=== PATIENT | female | born 1935 | race Caucasian/White ===

== ENCOUNTER 2018-01-03 17:48 | Emergency (ER) | payer MEDICARE ==
[~2018-01-03] VITALS: Ht 160 cm; Wt 72.7 kg
[~2018-01-03 17:48] MED LIST: ASPIRIN 81M81 MG/TA2 PO; BP MEDICATION; LEVOTHYROXINE; PERCOCET 325 MG1 TA2 PO; ULTRAM 50MG TAB50 MG PO
[2018-01-03] MEDS ORDERED: COZAAR 50MG50 MG/TAB PO (18:03)
[2018-01-03 18:31] LABS: BASO # 0.1 (0.0-0.2); EOS # 0.1 (0.0-0.7); EOS % 1.1 % (0-4.0); GRAN # 4.2 (1.4-6.5); GRAN % 57.1 % (42.2-75.2); HEMATOCRIT 43.9 % (37.0-47.0); HEMOGLOBIN 14.4 g/dl (12.5-16.0); LYMPH # 2.3 (1.2-3.4); MEAN CELL VOLUME 90 fl (80.0-100.0); MEAN CORPUSCULAR HEMOGLOBIN 30 pg (27.0-31.0); MEAN CORPUSCULAR HGB CONC 33 g/dl (33.0-37.0); MEAN PLATELET VOLUME 10.8 fl (7.4-10.4); MONO # 0.6 (0.1-0.6); MONO % 8.5 % (1.7-9.3); PLATELET COUNT 247 K/mm3 (130-400); RED BLOOD COUNT 4.88 M/mm3 (4.10-5.30); REDCELL DISTRIBUTION WIDTH-CV 14.1 % (11.5-14.5)
[2018-01-03 18:46] LABS: BILIRUBIN,TOTAL 0.5 mg/dL (0.0-1.0); C-REACTIVE PROTEIN 0.6 mg/dL (0.0-0.9); CALCIUM 9.7 mg/dL (8.4-10.2); CREATININE, serum 0.81 mg/dL (0.52-1.25); POTASSIUM 4.3 mmol/L (3.4-5.0); TOTAL PROTEIN 7.5 gm/dL (6.4-8.2)
[2018-01-03 19:11] LABS: ERYTHROCYTE SEDIMENTATION RATE 19 mm/hr (0-30)
[2018-01-03] MEDS ORDERED: PREDNISONE20 MG PO (19:54)
[2018-01-03] MEDS ORDERED: FENTANYL 25 MCG TD (19:54)
[2018-01-03 20:35] VITALS: BP 188/83; PULSE 62; TEMP 99.1
[2018-01-03] MEDS ORDERED: ZOFRAN ODT4 MG PO (20:35)
== END 2018-01-03 20:55 | disposition home or self-care (01) ==
LOC: COL.ER 17:48
PROVIDERS: Emergency Medicine
DX: M25.572 Pain in left ankle and joints of left foot (principal); I10 Essential (primary) hypertension; Z90.710 Acquired absence of both cervix and uterus; Z79.82 Long term (current) use of aspirin
CPT/HCPCS: J0360; J2405; J3010; J7512

== ENCOUNTER 2018-01-10 02:28 | Emergency (ER) | payer MEDICARE ==
[~2018-01-10] VITALS: Ht 160 cm; Wt 72.7 kg
[~2018-01-10 02:28] MED LIST changes: +COZAAR 50MG50 MG/TAB PO; +FENTANYL 25 MCG TD; +PREDNISONE20 MG PO; +ZOFRAN ODT4 MG PO
[2018-01-10 02:31] VITALS: TEMP 98.2
[2018-01-10] MEDS ORDERED: SYNTHROID0.05 MG/TA PO (02:45)
[2018-01-10 03:14] LABS: BASO # 0.1 (0.0-0.2); EOS # 0.1 (0.0-0.7); GRAN # 4.5 (1.4-6.5); GRAN % 54.6 % (42.2-75.2); HEMATOCRIT 42.5 % (37.0-47.0); HEMOGLOBIN 14.4 g/dl (12.5-16.0); LYMPH # 2.8 (1.2-3.4); LYMPH % 34.1 % (20.0-51.0); MEAN CELL VOLUME 89 fl (80.0-100.0); MEAN CORPUSCULAR HEMOGLOBIN 30 pg (27.0-31.0); MEAN CORPUSCULAR HGB CONC 34 g/dl (33.0-37.0); MEAN PLATELET VOLUME 10.8 fl (7.4-10.4); MONO # 0.7 (0.1-0.6); MONO % 8.7 % (1.7-9.3); PLATELET COUNT 252 K/mm3 (130-400); RED BLOOD COUNT 4.78 M/mm3 (4.10-5.30); REDCELL DISTRIBUTION WIDTH-CV 14.4 % (11.5-14.5)
[2018-01-10 03:19] LABS: INR 0.9 (0.8-3.0); PROTHROMBIN TIME 10.6 SECONDS (9.7-12.8)
[2018-01-10 03:27] LABS: ALANINE AMINOTRANSFERASE 26 U/L (9-52); ALBUMIN 3.8 gm/dL (3.5-5.0); ALKALINE PHOSPHATASE 66 U/L (50-136); ANION GAP 6 mmol/L (7-16); AST,SGOT 31 U/L (15-37); BILIRUBIN,TOTAL 0.6 mg/dL (0.0-1.0); BLOOD UREA NITROGEN 22 mg/dL (7-17); C-REACTIVE PROTEIN 0.6 mg/dL (0.0-0.9); CALCIUM 9.1 mg/dL (8.4-10.2); CARBON DIOXIDE 23 mmol/L (22-30); CHLORIDE 110 mmol/L (98-107); CREATINE KINASE 24 U/L (30-135); CREATININE, serum 0.62 mg/dL (0.52-1.25); GLUCOSE 80 mg/dL (74-106); SODIUM 140 mmol/L (137-145); TOTAL PROTEIN 7.4 gm/dL (6.4-8.2)
[2018-01-10 03:29] LABS: POTASSIUM 4.4 mmol/L (3.4-5.0)
[2018-01-10 03:37] LABS: TROPONIN-I < 0.012 ng/mL (0.000-0.034)
[2018-01-10 06:09] VITALS: BP 186/92; PULSE 55
== END 2018-01-10 06:10 | disposition home or self-care (01) ==
LOC: COL.ER 02:28
PROVIDERS: Emergency Medicine
DX: S82.832A Other fracture of upper and lower end of left fibula, initial encounter for closed fracture (principal); I10 Essential (primary) hypertension; E03.9 Hypothyroidism, unspecified; Z79.82 Long term (current) use of aspirin; X58.XXXA Exposure to other specified factors, initial encounter
CPT/HCPCS: Q4041

== ENCOUNTER → 2020-03-02 | Outpatient (REF) ==
[~2020-03-02] MED LIST changes: +SYNTHROID0.05 MG/TA PO
[2020-03-02 18:00] LABS: CLOSTRIDIUM DIFF A/B NEG; CLOSTRIDIUM DIFF A/B INTERP No C.diff present
== END ==
LOC: ZLAB.WCH 17:12
PROVIDERS: Physician Assistant
DX: Z01.89 Encounter for other specified special examinations (principal)